=== PATIENT | female | born 1975 | race African-American/Black ===

== ENCOUNTER 2019-04-24 08:36 | Outpatient (CLI) | payer OTHER ==
--- NOTE | 2019-04-25 08:31 | Mammography Report ---
DIGITAL SCREENING MAMMOGRAM WITH CAD, 04/24/2019 INDICATION: Baseline screening mammography. TECHNIQUE: Digital bilateral 2D mammography was obtained in the craniocaudal and mediolateral obliq ue projections. This examination was interpreted with the benefit of Computer-Aided Detection analysi s. COMPARISON: None. FINDINGS: Breast Density: The breasts are heterogeneously dense, which may obscure small masses. Right upper calcifications on the MLO view and right focal architectural distortion on both views req uires additional imaging. There is no evidence of dominant mass, suspicious calcifications or archite ctural distortion in the left breast. IMPRESSION: Right calcifications and architectural distortion requiring additional imaging. Recommend recall for right exaggerated CC, ML and spot magnification MLO and CC views and right breast ultraso und if needed. Follow up recommendation: Special View: Mag Category 0: Incomplete. Needs additional imaging evaluation and/or prior mammograms for comparison. A "normal" or negative report should not discourage follow up or biopsy of a clinically significant f inding. A written summary of these findings will be mailed to the patient. The patient will be entered into a mammography reporting system which will generate a reminder letter for the patient's next appointmen t at the appropriate interval. The [employer] recommends yearly mammograms starting at age 40 and continuing as l tammy as a woman is in good health. Breast MRI is recommended for women with an approximate 20-25% or greater lifetime risk of breast cancer, including women with a strong family history of breast or ova deisy cancer or who have been treated for Hodgkin's disease. Signer Name: Tong Boykin MD Signed: 04/25/2019 8:26 AM Workstation Name: [id number]
== END 2019-04-24 08:37 | disposition home or self-care (01) ==
LOC: SPVWC 08:36
PROVIDERS: ATTEND Hospitalist
DX: Z12.31 Encounter for screening mammogram for malignant neoplasm of breast (principal)
CPT/HCPCS: 77067

== ENCOUNTER 2019-05-09 08:36 | Outpatient (CLI) | payer OTHER ==
--- NOTE | 2019-05-09 10:01 | Mammography Report ---
RIGHT DIGITAL DIAGNOSTIC MAMMOGRAM WITH CAD -- 05/09/2019 RIGHT COMPLETE BREAST ULTRASOUND INDICATION: Recall to evaluate asymmetry and architectural distortion on a baseline screening mammogr am. ABNORMAL MAMMO TECHNIQUE: Digital right mammographic imaging was performed. Magnification views were obtained. This examination was interpreted with the benefit of Computer-Aided Detection (CAD) analysis. COMPARISON: 04/24/2019 FINDINGS: Breast Density: The breast is heterogeneously dense, which may obscure small masses. MAMMOGRAPHIC FINDINGS: ML, exaggerated CC and spot magnification CC, MLO and ML views were performed. A spiculated mass is identified in the lower outer quadrant and correlates with the finding at [facility]. A group of calcifications in the upper outer quadrant of the breast are separate from the mass and have indeterminate morphology. ULTRASOUND FINDINGS: Complete sonographic evaluation of all 4 quadrants and retroareolar region was p erformed. Ultrasound demonstrated an irregular spiculated heterogeneous hypoechoic shadowing mass a t 8:00 6 cm from the nipple measuring 1.3 x 1.2 x 1.1 cm. It correlates with the mammographic mass. N o other mass versus finding. The calcifications are not identified by ultrasound. Ultrasound of the r ight axilla demonstrated no suspicious lymph nodes. IMPRESSION: A highly suspicious 1.3 cm right breast mass at 8:00 6 cm from the nipple and a group of upper outer calcifications with intermediate suspicion for malignancy. Recommend ultrasound-guided ne edle biopsy of the right breast mass. Stereotactic biopsy of the calcifications may also be indicated depending upon other considerations. I discussed the findings and the recommendation for ultrasound-guided needle biopsy with the patient at the time of the exam. Follow up recommendation: Biopsy BI-RADS Category 5: Highly Suggestive of Malignancy. A "normal" or negative report should not discourage follow up or biopsy of a clinically significant f inding. A written summary of these findings will be mailed to the patient. The patient will be entered into a mammography reporting system which will generate a reminder letter for the patient's next appointmen t at the appropriate interval. According to the [employer], yearly mammograms are recommended starting at age 40 and continuing as long as a woman is in good health. Breast MRI is recommended for women with an vipin roximately 20-25% or greater lifetime risk of breast cancer, including women with a strong family his tory of breast or ovarian cancer and women who have been treated for Hodgkin's disease. Signer Name: Tong Boykin MD Signed: 05/09/2019 9:57 AM Workstation Name: [id number]
== END 2019-05-09 08:37 | disposition home or self-care (01) ==
LOC: SPVWC 08:36
PROVIDERS: ATTEND Hospitalist
DX: R92.1 Mammographic calcification found on diagnostic imaging of breast (principal); R92.2 Inconclusive mammogram

== ENCOUNTER 2019-06-07 08:58 | Outpatient (CLI) | payer OTHER ==
--- NOTE | 2019-06-07 11:58 | Mammography Report ---
RIGHT DIGITAL DIAGNOSTIC MAMMOGRAM CLINICAL: For clip placement after ultrasound guided needle biopsy biopsy. COMPARISON: 04/24/2019 FINDINGS: A biopsy clip is now identified in the outer breast and is concordant with the previously i dentified lesion. IMPRESSION: Concordant clip deployment. BI-RADS Category 4: Suspicious Signer Name: Tong Boykin MD Signed: 06/07/2019 11:53 AM Workstation Name: [id number]
--- NOTE | 2019-06-07 11:59 | Ultrasound Report ---
ULTRASOUND-GUIDED NEEDLE CORE BIOPSY RIGHT BREAST WITH CLIP PLACEMENT CLINICAL: A suspicious right breast mass at 8:00 6 cm from the nipple. FINDINGS: The procedure was explained to the patient and informed consent was obtained. Ultrasound demonstrated the previously identified shadowing spiculated mass. . I marked the breast with a felt tip marker and a timeout was called. The skin was prepped with Chloro -Prep and anesthetized with 1% lidocaine. Needle core biopsy was performed through small dermatotomy using ultrasound guidance, 2% lidocaine wi th epinephrine for deep anesthesia and a 14-gauge Achieve biopsy device. 3 cores were obtained and pl aced in formalin. A clip was deployed within the mass. The patient tolerated the procedure well and there were no apparent complications. Hemostasis was ach ieved with minimal effort and a sterile dressing was applied. A post procedure mammogram demonstrated concordant clip deployment. She left the department in good c ondition and was given instructions for wound care and follow-up. IMPRESSION: Uncomplicated ultrasound guided needle core biopsy with clip placement right breast. Signer Name: Tong Boykin MD Signed: 06/07/2019 11:55 AM Workstation Name: [id number]
== END 2019-06-07 08:59 | disposition home or self-care (01) ==
LOC: SPVWC 08:58
PROVIDERS: ATTEND Hospitalist
DX: N63.13 Unspecified lump in the right breast, lower outer quadrant (principal); Z79.899 Other long term (current) drug therapy
CPT/HCPCS: 88305; 88341; 88342